=== PATIENT | male | born 1955 | race Hispanic/Latino ===

== ENCOUNTER 2025-05-01 05:40 | Day surgery (SDC) | payer OTHER ==
[2025-04-30 11:54] LABS: IMMATURE GRANULOCYTE ABSOLUTE 0.02 K/uL (0-1); NUCLEATED RED BLOOD CELLS 0.0 % (0.0-0.19); PLATELET COUNT (AUTO) 216 K/uL (130-400); RED BLOOD CELL COUNT(AUTO) 4.40 MIL/uL (4.50-6.20); RED CELL DISTRIBUTION WIDTH 12.3 % (11.0-15.5); WHITE BLOOD COUNT (AUTO) 5.4 K/uL (4.8-10.8)
[2025-04-30 12:01] LABS: APPEARANCE,URINE CLEAR (CLEAR); GLUCOSE, URINE (UA) NEGATIVE (NEGATIVE); LEUKOCYTE ESTERASE ,URINE NEGATIVE Leu/uL (NEGATIVE); NITRATE,URINE NEGATIVE (NEGATIVE); OCCULT BLOOD,URINE NEGATIVE (NEGATIVE)
[2025-04-30 12:01] LABS: CREATININE 1.3 mg/dL (0.5-1.3); GLOMERULAR FILTR. RATE CALC 59.0 mL/min (>90); GLUCOSE,RANDOM 97.0 mg/dL (70-105); SODIUM SERUM 137.0 mmol/L (136-145); UREA NITROGEN, BLOOD 14.0 mg/dL (7-18)
[2025-04-30 12:05] LABS: ADD UA MICROSCOPIC NO
--- NOTE | 2025-04-30 12:06 | EKG ---
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
[2025-04-30 12:16] LABS: INR 0.96 (0.85-1.15)
[2025-04-30 12:17] VITALS: BP 114/60; PULSE 61; RESP 17; TEMP 98.6
--- NOTE | 2025-04-30 13:58 | HMCIMG ---
EXAM: CR Chest, 1 View. CLINICAL HISTORY: PREOP COMPARISON: None provided. FINDINGS: LUNGS: There is no mass, infiltrate, or acute pulmonary abnormality. PLEURAL SPACES: No evidence of pleural effusion or pneumothorax. MEDIASTINUM: Cardiac size and mediastinal contours within normal limits. BONES: No aggressive appearing osseous lesion seen. IMPRESSION: No acute cardiopulmonary pathology is evident. /[place]
[~2025-05-01] VITALS: Ht 172.7 cm; Wt 65.1 kg
[2025-05-01] VITALS (8 sets, daily range): BP systolic 112–126; BP diastolic 56–66; PULSE 53–59; RESP 9–14; TEMP 97.2–97.5
[~2025-05-01 05:40] MED LIST: ASPI-1443 PO; ROSU40TA88 PO; SPIR25TA6 PO; TADALAFIL PO
[2025-05-01] MEDS: 0.9%NACL 1000ML 1,000 ML IV SCH (06:28)
[2025-05-01] MEDS ORDERED: VERAPAMIL HCL 2.5 MG/ML VIAL ONE (07:07)
[2025-05-01] MEDS ORDERED: IOHEXOL 350 MG/ML 100ML INFUS..BTL IV ONE (07:07)
[2025-05-01] MEDS ORDERED: HEParin-NS 1,000 UNIT/500 ML 1,000 ML IV ONE (07:07)
[2025-05-01] MEDS ORDERED: LIDOCAINE HCL 400MG/20ML VIAL ONE (07:07)
[2025-05-01] MEDS ORDERED: NITROGLYCERIN 50MG VIAL ONE (07:08)
[2025-05-01] MEDS ORDERED: MIDAZOLAM HCL 1 MG/ML 2ML VIAL ONE (07:29)
[2025-05-01] MEDS ORDERED: ADENOSINE 90MG VIAL IV ONE (08:29)
--- NOTE | 2025-05-01 09:14 | PRN ---
Cath Procedure Report CATH PROCEDURE REPORT CARDIAC CATHETERIZATION REPORT Date of Service: May 01, 2025 PROCEDURE: Left heart catheterization with selective right and left coronary angiography Instantaneous fractional flow reserve measurement of the left anterior descending artery Fractional flow reserve measurement of the left anterior descending artery Percutaneous intervention with stent placement (Xience SkyPoint 3.0 x 18 mm, post dilated to 3.24 mm) to the mid left anterior descending artery Conscious sedation PRIMARY PIPE MANUFACTURE SUPERVISOR: Dieter Cui DO ASSEMBLER CLIP ON SUNGLASSES: Dieter Cui DO DESCRIPTION OF PROCEDURE: Patient was prepped and draped in sterile fashion. Time-out was performed. Conscious sedation was administered by independent qualify earthmoving labourer RN under my direct supervision and there were no complications secondary to anesthesia. Right radial artery was accessed as. We will to infiltration with 1% lidocaine and placement of six [place] hydrophilic short sheath. Vasodilator cocktail was given intra-arterially via the sheath side port with 2.5 mg of verapamil and 200 mcg of nitroglycerin. A six [place] JR4 catheter was used to cross the aortic valve for LVEDP measurement, pullback across the aortic valve and selective angiography of the right coronary artery and multiple obliquities. This was exchanged for a six [place] JL 3.5 catheter which was used to selectively engage the left coronary artery and multiple angiographic views were taken. Patient was heparinized via peripheral IV with 70 units/kg and ACT was monitored periodically throughout the procedure and additional heparin given as needed to achieve a therapeutic ACT goal of greater than 250. We then proceeded with interrogation of the left anterior descending artery mid stenoses which appeared 60-70%. There was also a proximal LAD long segment stenosis which appeared no more than moderate. Six [place] JL 3.5 guide catheter was used to selectively cannulate the left coronary artery and instantaneous fractional flow reserve wire was advanced distally in the LAD. The plan was for this to not only confirmed the mid LAD stenosis as significant, but also confirmed the moderate stenosis in the proximal LAD as insignificant. Unfortunately, IFR was negative distally at 0.91 therefore we proceeded with FFR which confirmed mid LAD stenosis of significant with a FFR of 0.72 after 50 seconds of adenosine infusion. Percutaneous intervention was performed of the mid LAD stenosis with predilatation using a Euphora 3.25 x 15 mm compliant balloon followed by placement of Xience SkyPoint 3.0 x 18 mm drug eluting stent which was post dilated at 20 atmospheres for a lumen no caliber of 3.24 mm (3.25 stent was not available). This revealed brisk ROSELINE three flow, adequate coverage of the lesion and no dissection. FINDINGS: Left main with distal 30% stenosis Left circumflex essentially gives off only one OM branch. Prior to takeoff of the OM, left circumflex with 30-40% stenosis. Left anterior descending artery proximally has a long segment of 30-40% stenosis. Mid 60-70% stenosis angiographically, negative by IFR (0.91), however obviously positive by FFR (0.72 at 50 seconds of adenosine infusion). This lesion was stented. Distal LAD with 20-30% stenosis. Diagonal branches angiographically free of any significant disease Right coronary artery. Prior placed overlapping stents in the proximal to mid RCA which are widely patent (2023). Distal to this there is a focal 20- 30% stenosis. Right dominant coronary system. RPDA angiographically free of any significant disease. Left ventricular end-diastolic pressure of 8 mm Hg No significant gradient on pullback across the aortic valve CONTRAST: 120 ml SUMMARY: 1. Widely patent overlapping stents in the right coronary artery (2023) 2. 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
[2025-05-01] MEDS ORDERED: 0.9%NACL 1000ML 1,000 ML IV SCH (09:30)
--- NOTE | 2025-05-01 11:03 | NUR ---
DRESSING: VASC BAND REMOVED WITH NO ACTIVE BLEEDING PRESENT. CLEANSED WITH CHLORAPREP FOLLOWED BY APPLYING STERILE 2X2 GAUZE THAN 2X2 TEGADERM. NO REDNESS/SWELLING NOTED TO SURROUNDING AREA RT WRIST.
== END 2025-05-01 11:15 | disposition home or self-care (01) ==
LOC: DAH 05:40
PROVIDERS: ATTEND Internal Medicine
DX: R94.39 Abnormal result of other cardiovascular function study (principal); I25.119 Atherosclerotic heart disease of native coronary artery with unspecified angina pectoris; I25.5 Ischemic cardiomyopathy; Z79.82 Long term (current) use of aspirin; Z79.01 Long term (current) use of anticoagulants; Z79.899 Other long term (current) drug therapy; Z98.890 Other specified postprocedural states
CPT/HCPCS: 80048; 83880; 85025; 85610; 85730; 81003; 36415; 71045; 93005; 99156; 99157 ×3; 93458; 93571; 85347; A4223 ×2; Q9965 ×2; C1769 ×2; C1725; C1894; A4649; C1887; C1874; J3010; J3490 ×3; J7030; J1644 ×3; J2250; J0153; Q9967; A4215; A6260; A4221; A4663; A4216; A6206; A4606; C9600; 96360; 96361; 96365